=== PATIENT | male | born 1935 | race Caucasian/White ===

== ENCOUNTER → 2019-08-23 | Outpatient (CLI) | payer MEDICARE, BC ==
--- NOTE | 2019-08-24 09:34 | RADIOLOGY REPORT (SQ) ---
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 TECHNIQUE: Multiplanar imaging includes noncontrasted T1, T2, FLAIR, Diffusion with ADC map and post gadolinium contrast T1 sequences. Images stored on PACS. CONTRAST TYPE AND DOSE: 15 mL Prohance. RENAL FUNCTION: Not indicated. ACR Type II contrast agent associated with few, if any, unconfounded cases of NSF LIMITATIONS: None. FINDINGS: ANATOMY: No anomalies. Normal vascular flow voids. Pituitary fossa normal. CSF SPACES: Atrophy-induced prominence of CSF spaces and ventricles. CEREBRUM: High-signal intensity lesions scattered throughout the white matter on FLAIR imaging with d istribution suggesting chronic micro-vascular ischemic change. No evidence of hemorrhage, mass, extra axial fluid collection or acute ischemic change. No enhancing lesions. POSTERIOR FOSSA: No signal alteration. No hemorrhage. No edema, masses, or mass effect. Internal harvey tory canals, cerebello-pontine angles, mastoids normal. No enhancing lesions. ORBITS: No masses. Globes normal. PARANASAL SINUSES: No fluid levels. Mucosa normal. DIFFUSION: Normal. No evidence of recent infarct. OTHER: No other significant finding. IMPRESSION: Chronic ischemic changes. Normal IAC's. EVIDENCE OF ACUTE STROKE: NO. TECHNICAL DOCUMENTATION: JOB ID: [id number] 2010 [employer]- All Rights Reserved Reading location - IP/workstation name: [email or web address]
== END ==
LOC: RAD 17:43
PROVIDERS: ATTEND Otolaryngology
DX: H90.3 Sensorineural hearing loss, bilateral (principal)
CPT/HCPCS: 82565; 70553; A9576

== ENCOUNTER → 2019-09-01 | Outpatient (CLI) | payer MEDICARE, BC ==
--- NOTE | 2019-09-01 11:38 | RADIOLOGY REPORT (SQ) ---
EXAM DESCRIPTION: CHEST PA/LATERAL IMAGES COMPLETED DATE/TIME: 09/01/2019 11:27 am REASON FOR STUDY: PNEUMOTHORAX, UNSPECIFIED COMPARISON: None. EXAM PARAMETERS: NUMBER OF VIEWS: two views TECHNIQUE: Digital Frontal and Lateral radiographic views of the chest acquired. RADIATION DOSE: NA LIMITATIONS: none FINDINGS: LUNGS AND PLEURA: No opacities, masses or pneumothorax. No pleural effusion. MEDIASTINUM AND HILAR STRUCTURES: No masses or contour abnormalities. HEART AND VASCULAR STRUCTURES: Heart normal size. No evidence for failure. BONES: No acute findings. HARDWARE: None in the chest. OTHER: No other significant finding. IMPRESSION: NO SIGNIFICANT RADIOGRAPHIC FINDING IN THE CHEST. TECHNICAL DOCUMENTATION: JOB ID: [id number] 2010 [employer]- All Rights Reserved Reading location - IP/workstation name: [email or web address]
== END ==
LOC: WC 10:57
PROVIDERS: ATTEND Nurse Practitioner Family
DX: J93.9 Pneumothorax, unspecified (principal)
CPT/HCPCS: 71046

== ENCOUNTER 2019-12-04 12:19 | Inpatient (IN) | payer MEDICARE, BC ==
[2019-12-04] MEDS ORDERED: MORPHINE SULFATE 10 MG/ML INJ IM ONE (13:32)
--- NOTE | 2019-12-04 13:33 | ER Document Report ---
ED Medical Screen (RME) - General Chief Complaint: Abdominal Pain Stated Complaint: ABDOMINAL PAIN Time Seen by Provider: 12/04/19 13:31 Primary Care Provider: ANDRES CASTILLO NP, E M ASSEMBLER [Primary Care Provider] - Follow up as needed Mode of Arrival: Ambulatory Information source: Patient Notes: 84-year-old male presented to ED for complaint of pain to his right upper quadra nt abdominal. He states he has had nausea and vomiting has nothing in his stomach started last night. He thinks he is having a bad gallbladder problem. He is alert oriented respirations regular nonlabored speaking in full sentences. He does have past medical history of a fractured wrist prostate cancer and nose cancer. He does get radiation treatment for the prostate and the nose. States he is an 82 a lot of pain and needs something for his pain right now. I have ordered him 2 mg of morphine IM until he can get into her room. I have greeted and performed a rapid initial assessment of this patient. A comprehensive ED assessment and evaluation of the patient, analysis of test results and completion of medical decision making process will be conducted by an additional ED providers. TRAVEL OUTSIDE OF THE [place] IN LAST 30 DAYS: No Physical Exam - Vital signs Vitals: Temp Pulse Resp BP Pulse Ox 97.9 F 57 L 18 180/74 H 99 12/04/19 12:12/04/19 12:12/04/19 12:12/04/19 12:12/04/19 12:27 Course - Vital Signs Vital signs: Temp Pulse Resp BP Pulse Ox 97.9 F 57 L 18 180/74 H 99 12/04/19 12:12/04/19 12:12/04/19 12:12/04/19 12:12/04/19 12:27 Doctor's Discharge - Discharge Referrals: ANDRES CASTILLO NP, E M ASSEMBLER [Primary Care Provider] - Follow up as needed
[2019-12-04] MEDS ORDERED: ONDANSETRON 4 MG TAB.RAPDIS PO ONE (13:38)
[2019-12-04] MEDS ORDERED: NORMAL SALINE 1000 ML 1,000 ML IV ONE (13:38)
[2019-12-04 14:10] LABS: ABSOLUTE LYMPHOCYTES (AUTO) 0.6 10^3/uL (0.5-4.7); ABSOLUTE MONOCYTES (AUTO) 1.1 10^3/uL (0.1-1.4); ABSOLUTE NEUT (AUTO) 9.6 10^3/uL (1.7-8.2); BASOPHILS % (AUTO) 0.2 % (0-2); HEMATOCRIT 44.8 % (37.9-51.0); LYMPHOCYTES % (AUTO) 5.4 % (13-45); MEAN CORPUSCULAR HEMOGLOBIN 30.7 pg (27.0-33.4); MEAN CORPUSCULAR HGB CONC 33.6 g/dL (32.0-36.0); MEAN CORPUSCULAR VOLUME 91 fl (80-97); MONOCYTES % (AUTO) 9.8 % (3-13); PLATELET COUNT 173 10^3/uL (150-450); RED CELL DISTRIBUTION WIDTH 13.6 % (11.5-14.0); SEGMENTED NEUTROPHILS % (AUTO) 84.6 % (42-78); TOTAL CELLS COUNTED % (AUTO) 100 %; WHITE BLOOD COUNT 11.4 10^3/uL (4.0-10.5)
[2019-12-04 14:26] LABS: ALBUMIN 4.7 g/dL (3.5-5.0); ALKALINE PHOSPHATASE 98 U/L (38-126); ANION GAP 13 (5-19); ASPARTATE AMINO TRANSFERASE 30 U/L (17-59); BILIRUBIN,DIRECT 0.3 mg/dL (0.0-0.4); BLOOD UREA NITROGEN 14 mg/dL (7-20); CALCIUM 9.4 mg/dL (8.4-10.2); CARBON DIOXIDE 22 mmol/L (22-30); CHLORIDE 101 mmol/L (98-107); GLUCOSE 128 mg/dL (75-110); POTASSIUM 4.4 mmol/L (3.6-5.0); TOTAL PROTEIN 7.3 g/dL (6.3-8.2)
--- NOTE | 2019-12-04 15:59 | RADIOLOGY REPORT (SQ) ---
EXAM DESCRIPTION: U/S ABDOMEN LIMITED W/O DOP IMAGES COMPLETED DATE/TIME: 12/04/2019 3:34 pm REASON FOR STUDY: Right upper quadrant abdominal pain with NV COMPARISON: None. TECHNIQUE: Dynamic and static grayscale images acquired of the abdomen and recorded on PACS. Additio nal selected color Doppler and spectral images recorded. LIMITATIONS: Limited visualization due to bowel gas. FINDINGS: PANCREAS: Partially visualized. LIVER: Enlarged measuring 18 cm. No focal lesions. No intrahepatic ductal dilation. LIVER VASCULATURE: Normal directional flow of the main portal vein and hepatic veins. GALLBLADDER: Shadowing echogenic dependent material compatible with cholelithiasis. Additional gallb ladder sludge noted. There is mild distention of the gallbladder measuring 4.2 cm transversely. Wal l is thickened measuring 4 mm. No pericholecystic fluid. ULTRASOUND-DETECTED LEACH'S SIGN: Negative. INTRAHEPATIC DUCTS AND COMMON DUCT: CBD and intrahepatic ducts normal caliber. No filling defects. INFERIOR VENA CAVA: Normal flow. AORTA: Partially visualized. No aneurysm. RIGHT KIDNEY: Normal size measuring 12.2 cm. Complex cyst with internal debris within the interpola r region measuring 4.0 x 3.3 x 3.2 cm. No significant vascularity. Otherwise normal echogenicity. No hydronephrosis. No calcifications. PERITONEAL AND RIGHT PLEURAL SPACE: No ascites or effusions. OTHER: Questionable right adrenal nodule measuring approximately 4.0 x 2.6 x 5.6 cm. IMPRESSION: 1. Cholelithiasis and sludge with gallbladder wall thickening and mildly distended gall bladder. Reported negative sonographic Leach's sign. Findings suggestive of but nondiagnostic for acute cholecystitis. Recommend correlation with patient symptoms and white count. 2. Complex cystic lesion within the right kidney measuring up to 4.0 cm. Dedicated renal protocol C T or MRI should be considered for more definitive characterization. 3. Questionable right adrenal mass measuring 4.0 x 2.6 x 5.6 cm. Again dedicated abdominal CT or MR should be considered for more definitive characterization. TECHNICAL DOCUMENTATION: JOB ID: [id number] 2010 [employer]- All Rights Reserved Reading location - IP/workstation name: [email or web address]
[2019-12-04] MEDS ORDERED: PIPERACILLIN/TAZOBACTAM 3.375 GM VIAL IV ONE (20:22)
--- NOTE | 2019-12-04 20:24 | ER Document Report ---
ED GI/ - General Chief Complaint: Abdominal Pain Stated Complaint: ABDOMINAL PAIN Time Seen by Provider: 12/04/19 13:31 Mode of Arrival: Ambulatory Notes: Patient is an 84-year-old male that comes emergency department for chief complaint of mid to upper abdominal pain especially on the right side. He states that this started last night, he has vomited 5 times, he has not eaten anything all day. He denies previous similar symptoms. He denies flank pain, chest pain specifically, shortness of breath, fever/chills, abnormal bowel movements. He denies any abdominal surgeries. He does report that he has a known abdominal hernia but this area is not tender per patient. Past medical history of prostate cancer and skin cancer treated with radiation, in remission. He also is a history of BPH, anxiety. He denies any other medical history and specifically denies any cardiovascular history. He does not smoke or drink alcohol. TRAVEL OUTSIDE OF THE [place] IN LAST 30 DAYS: No - Related Data Allergies/Adverse Reactions: No Known Allergies Allergy (Verified 12/04/19 20:46) Past Medical History - General Information source: Patient - Social History Smoking Status: Never Smoker Frequency of alcohol use: None Drug Abuse: None Lives with: Family Family History: Reviewed & Not Pertinent Malignancy Medical History: Reports Hx Prostate Cancer, Reports Hx Skin Cancer Psychiatric Medical History: Reports: Hx Anxiety - Immunizations Hx Diphtheria, Pertussis, Tetanus Vaccination: Yes Review of Systems - Review of Systems Constitutional: No symptoms reported EENT: No symptoms reported Cardiovascular: No symptoms reported Respiratory: No symptoms reported Gastrointestinal: See HPI Genitourinary: No symptoms reported Male Genitourinary: No symptoms reported Musculoskeletal: No symptoms reported Skin: No symptoms reported Hematologic/Lymphatic: No symptoms reported Neurological/Psychological: No symptoms reported Physical Exam - Vital signs Vitals: Temp Pulse Resp BP Pulse Ox 97.9 F 57 L 18 180/74 H 99 12/04/19 12:27 12/04/19 12:27 12/04/19 12:27 12/04/19 12:27 12/04/19 12:27 - Notes Notes: GENERAL: Alert, interacts well. No acute distress. HEAD: Normocephalic, atraumatic. EYES: Pupils equal, round, and reactive to light. Extraocular movements intact. ENT: Oral mucosa moist, tongue midline. Oropharynx unremarkable. Airway patent. NECK: Full range of motion. Supple. Trachea midline. No lymphadenopathy. LUNGS: Clear to auscultation bilaterally, no wheezes, rales, or rhonchi. No resp iratory distress. Non-tender chest wall. HEART: Regular rate and rhythm, 1/6 systolic murmur heard throughout ABDOMEN: There is some tenderness in the right upper quadrant and epigastric area but no severe tenderness or guarding. There appears to be a small umbilical hernia but this is nontender and soft. Bowel sounds present. No distention, no scars, unremarkable otherwise. EXTREMITIES: Moves all 4 extremities spontaneously. No edema, normal radial and dorsalis pedis pulses bilaterally. No cyanosis. BACK: no cervical, thoracic, lumbar midline tenderness. No saddle anesthesia, normal distal neurovascular exam. Moves all extremities in full range of motion. NEUROLOGICAL: Alert and oriented x3. Normal speech. Cranial nerves II through XII grossly intact. Strength 5/5 in all extremities. PSYCH: Normal affect, normal mood. SKIN: Warm, dry, normal turgor. No rashes or lesions noted. Course - Re-evaluation Re-evalutation: Patient does have right upper quadrant pain on exam but there is no guarding. He does not appear to be in distress. He is hypertensive but his vital signs are otherwise unremarkable. No fever. CBC shows mild leukocytosis at 11,000 with elevation of neutrophils but no bandemia. Chemistry including LFTs, bilirubin, and lipase are unremarkable. Urinalysis unremarkable. Troponin negative, EKG unremarkable, chest x-ray unremarkable. Ultrasound showing gallbladder wall thickening and distention of the gallbladder, suggestive of cholecystitis but recommendation is correlation. Based on patient's symptoms of pain, vomiting, focal pain, and concerning ultrasound I discussed with patient, will discuss with general surgery. Dr. eHrring evaluated the patient, he has accepted patient to his service, patient admitted to the surgical floor. - Vital Signs Vital signs: Temp Pulse Resp BP Pulse Ox 98.4 F 61 17 155/66 H 96 12/05/19 01:09 12/05/19 01:09 12/05/19 01:09 12/05/19 01:09 12/05/19 01:09 - Laboratory Result Diagrams: 12/04/19 13:51 12/04/19 13:51 Laboratory results interpreted by me: 12/04/19 12/04/19 12/04/19 13:51 13:51 20:00 WBC 11.4 H Lymph % (Auto) 5.4 L Absolute Neuts (auto) 9.6 H Seg Neutrophils % 84.6 H Sodium 136.2 L Glucose 128 H Urine Protein 100 H Urine Urobilinogen 2.0 H Discharge - Discharge Clinical Impression: RUQ abdominal pain, Vomiting, Cholecystitis Condition: Stable Disposition: ADMITTED OBSERVATION Admitting Provider: Surgicalist Unit Admitted: Surgical Floor
[2019-12-04 20:30] LABS: APPEARANCE,URINE CLEAR; BILIRUBIN,URINE NEGATIVE (NEGATIVE); COLOR,URINE YELLOW; GLUCOSE, URINE NEGATIVE (NEGATIVE); KETONES,URINE NEGATIVE (NEGATIVE); LEUKOCYTE ESTERASE,URINE NEGATIVE (NEGATIVE); NITRITE,URINE NEGATIVE (NEGATIVE); PROTEIN,URINE 100 mg/dL (NEGATIVE); URINE SPECIFIC GRAVITY 1.018
[2019-12-04] MEDS ORDERED: MORPHINE SULFATE 10 MG/ML INJ IV ONE (20:42)
[2019-12-04] MEDS ORDERED: ONDANSETRON HCL INJ/PF 4 MG/2 ML SDV IV ONE (20:42)
--- NOTE | 2019-12-04 21:02 | RADIOLOGY REPORT (SQ) ---
CLINICAL INDICATION: upper abd/lower chest pain. TECHNIQUE: A single portable AP view was obtained of the chest at 2040 hours. COMPARISON: None. FINDINGS: The cardiomediastinal silhouette is prominent but stable. The lungs are grossly clear. No evidence of effusion or pneumothorax. Chronic parenchymal lung change. Trivial platelike atelectasis/scar, similar to prior IMPRESSION: No evidence of active intrathoracic disease. Mild chronic change
[2019-12-04] MEDS ORDERED: NORMAL SALINE 1000 ML 1,000 ML IV PRN ×2 (21:22→21:40)
[2019-12-04] MEDS ORDERED: ONDANSETRON HCL INJ/PF 4 MG/2 ML SDV IV PRN (21:43)
--- NOTE | 2019-12-04 21:51 | PDOC H&P ---
History of Present Illness Admission Date/PCP: CAROL STARKS MD Patient complains of: Abdominal pain History of Present Illness: IRVIN LEE is a 84 year old male Patient presents emergency department via ground rescue with approximately 18- hour history of abdominal pain, multiple episodes of nausea and vomiting and anorexia. Last bowel movement yesterday, normal. Patient denies history of trauma, previous episodes of abdominal pain GI symptoms etc. There is a strong family history of gallbladder disease. Patient has been in the emergency department for 6 and half hours. He had a gallbladder ultrasound which showed gallstones, borderline thickened gallbladder. Surgery was consulted, patient was advised admission. Past Medical History Past Medical History: Hard of hearing; superficial skin cancers Past Surgical History Past Surgical History: Status post inguinal hernia repair Social History Information Source: Patient Smoking Status: Never Smoker Electronic Cigarette use?: No Frequency of Alcohol Use: None Hx Recreational Drug Use: No Hx Prescription Drug Abuse: No Family History Family History: None Parental Family History Reviewed: No Children Family History Reviewed: No Sibling(s) Family History Reviewed.: No Medication/Allergy Allergies/Adverse Reactions: No Known Allergies Allergy (Verified 12/04/19 20:46) Review of Systems Constitutional: PRESENT: as per HPI Eyes: ABSENT: visual disturbances Ears: ABSENT: hearing changes Cardiovascular: ABSENT: chest pain, dyspnea on exertion, edema, orthropnea, palpitations Respiratory: ABSENT: cough, hemoptysis Gastrointestinal: PRESENT: as per HPI Genitourinary: ABSENT: dysuria, hematuria Musculoskeletal: ABSENT: joint swelling Integumentary: ABSENT: rash, wounds Neurological: ABSENT: abnormal gait, abnormal speech, confusion, dizziness, focal weakness, syncope Endocrine: ABSENT: cold intolerance, heat intolerance, polydipsia, polyuria Hematologic/Lymphatic: ABSENT: easy bleeding, easy bruising Physical Exam Vital Signs: Temp Pulse Resp BP Pulse Ox 97.9 F 57 L 20 174/76 H 94 12/04/19 12:27 12/04/19 12:27 12/04/19 21:01 12/04/19 21:01 12/04/19 21:01 Intake & Output 12/03/19 12/04/19 12/05/19 06:59 06:59 06:59 Weight 83.9 kg General appearance: PRESENT: no acute distress Head exam: PRESENT: normocephalic Eye exam: PRESENT: EOMI Mouth exam: PRESENT: dry mucosa Neck exam: PRESENT: full ROM Respiratory exam: PRESENT: clear to auscultation lolita Cardiovascular exam: PRESENT: RRR Pulses: PRESENT: normal carotid pulses, normal radial pulses, normal femoral pulses, normal dorsalis pedis pul GI/Abdominal exam: PRESENT: soft, other - Tender right upper quadrant with guarding to deep palpation. Small umbilical hernia, reducible Rectal exam: PRESENT: deferred Extremities exam: PRESENT: full ROM Musculoskeletal exam: PRESENT: full ROM Neurological exam: PRESENT: awake, oriented to person, oriented to place, oriented to time, oriented to situation, reflexes normal Psychiatric exam: PRESENT: appropriate affect Skin exam: PRESENT: dry Results Laboratory Results: 12/04/19 13:51 12/04/19 13:51 12/04/19 12/04/19 12/04/19 13:51 13:51 20:00 WBC 11.4 H RBC 4.90 Hgb 15.0 Hct 44.8 MCV 91 MCH 30.7 MCHC 33.6 RDW 13.6 Plt Count 173 Seg Neutrophils % 84.6 H Sodium 136.2 L Potassium 4.4 Chloride 101 Carbon Dioxide 22 Anion Gap 13 BUN 14 Creatinine 0.85 Est GFR ( Amer) > 60 Glucose 128 H Calcium 9.4 Total Bilirubin 1.0 AST 30 Alkaline Phosphatase 98 Total Protein 7.3 Albumin 4.7 Lipase 59.2 Urine Color YELLOW Urine Appearance CLEAR Urine pH 7.0 Ur Specific Mcgregor 1.018 Urine Protein 100 H Urine Glucose (UA) NEGATIVE Urine Ketones NEGATIVE Urine Blood NEGATIVE Urine Nitrite NEGATIVE Ur Leukocyte Esterase NEGATIVE Urine WBC (Auto) 4 Urine RBC (Auto) 4 12/04/19 13:51 Troponin I 0.013 Impressions: Abdomen Ultrasound 12/04/19 13:34 IMPRESSION: 1. Cholelithiasis and sludge with gallbladder wall thickening and mildly distended gallbladder. Reported negative sonographic Leach's sign. Findings suggestive of but nondiagnostic for acute cholecystitis. Recommend correlation with patient symptoms and white count. 2. Complex cystic lesion within the right kidney measuring up to 4.0 cm. Dedicated renal protocol CT or MRI should be considered for more definitive characterization. 3. Questionable right adrenal mass measuring 4.0 x 2.6 x 5.6 cm. Again dedicated abdominal CT or MR should be considered for more definitive characterization. Chest X-Ray 12/04/19 20:22 IMPRESSION: No evidence of active intrathoracic disease. Mild chronic change Assessment & Plan - Diagnosis (1) Cholecystitis, acute with cholelithiasis Is this a current diagnosis for this admission?: Yes Plan: See below under umbilical hernia (2) Umbilical hernia Is this a current diagnosis for this admission?: Yes Plan: Impression: Acute cholecystitis with cholelithiasis in 84-year-old highly functional white male with no documented chronic medical problems; incidental right renal cyst, and possible right adrenal mass; incidental, reducible umbilical hernia Recommendations: 1. Will admit, keep n.p.o. IV fluids intravenous antibiotics 2. We will check rapid COVID test. 3. Plan for laparoscopic, possible open cholecystectomy, closure of umbilical hernia, tomorrow, December 04, Dr. Maynard surgicalist 4. We will obtain dedicated CT scan of the abdomen and pelvis with IV and oral contrast tomorrow morning to further define the pathoanatomy involving the right kidney and adrenal gland. (3) Hard of hearing Is this a current diagnosis for this admission?: Yes (4) Renal cyst, right Is this a current diagnosis for this admission?: Yes (5) Right adrenal mass Is this a current diagnosis for this admission?: Yes - Time Time Spent: 30 to 50 Minutes Critical Time spent with patient: Less than 15 minutes Medications reviewed and adjusted accordingly: Yes Anticipated Discharge Disposition: Home, Self Care Anticipated Discharge Timeframe: within 48 hours
[2019-12-04] MEDS ORDERED: CEFAZOLIN 1 GM/D5W RTU 1 GM/50 ML RTUPB IV ONE (22:30)
[2019-12-05] MEDS ORDERED: CEFAZOLIN 1 GM/D5W RTU 1 GM/50 ML RTUPB IV ONE (04:25)
[2019-12-05] MEDS: CEFAZOLIN 1 GM/D5W RTU 1 GM/50 ML RTUPB IV SCH ×2 (05:52→15:12)
--- NOTE | 2019-12-05 08:10 | PDOC PROGRESS REPORT ---
Subjective Progress Note for:: 12/05/19 Subjective:: Comfortable Reason For Visit: ACUTE CHOLECYSTITIS WITH CHOLELITHIASIS Physical Exam Vital Signs: Temp Pulse Resp BP Pulse Ox 98.4 F 61 17 155/66 H 96 12/05/19 01:09 12/05/19 01:09 12/05/19 01:09 12/05/19 01:09 12/05/19 01:09 Intake & Output 12/04/19 12/05/19 12/06/19 06:59 06:59 06:59 Intake Total 1100 Output Total 0 Balance 1100 Weight 83 kg General appearance: PRESENT: no acute distress Respiratory exam: PRESENT: clear to auscultation lolita Cardiovascular exam: PRESENT: RRR GI/Abdominal exam: PRESENT: soft, tenderness - Minimal right upper quadrant Results Laboratory Results: 12/04/19 13:51 12/04/19 13:51 12/04/19 12/04/19 12/04/19 13:51 13:51 20:00 WBC 11.4 H RBC 4.90 Hgb 15.0 Hct 44.8 MCV 91 MCH 30.7 MCHC 33.6 RDW 13.6 Plt Count 173 Seg Neutrophils % 84.6 H Sodium 136.2 L Potassium 4.4 Chloride 101 Carbon Dioxide 22 Anion Gap 13 BUN 14 Creatinine 0.85 Est GFR ( Amer) > 60 Glucose 128 H Calcium 9.4 Total Bilirubin 1.0 AST 30 Alkaline Phosphatase 98 Total Protein 7.3 Albumin 4.7 Lipase 59.2 Urine Color YELLOW Urine Appearance CLEAR Urine pH 7.0 Ur Specific Ramsey 1.018 Urine Protein 100 H Urine Glucose (UA) NEGATIVE Urine Ketones NEGATIVE Urine Blood NEGATIVE Urine Nitrite NEGATIVE Ur Leukocyte Esterase NEGATIVE Urine WBC (Auto) 4 Urine RBC (Auto) 4 12/04/19 13:51 Troponin I 0.013 Impressions: Abdomen Ultrasound 12/04/19 13:34 IMPRESSION: 1. Cholelithiasis and sludge with gallbladder wall thickening and mildly distended gallbladder. Reported negative sonographic Leach's sign. Findings suggestive of but nondiagnostic for acute cholecystitis. Recommend correlation with patient symptoms and white count. 2. Complex cystic lesion within the right kidney measuring up to 4.0 cm. De dicated renal protocol CT or MRI should be considered for more definitive characterization. 3. Questionable right adrenal mass measuring 4.0 x 2.6 x 5.6 cm. Again dedicated abdominal CT or MR should be considered for more definitive characterization. Chest X-Ray 12/04/19 20:22 IMPRESSION: No evidence of active intrathoracic disease. Mild chronic change Assessment & Plan - Diagnosis (1) Renal cyst, right Is this a current diagnosis for this admission?: Yes (2) Cholecystitis, acute with cholelithiasis Qualifiers: Biliary obstruction: without biliary obstruction Qualified Code(s): K80.00 - Calculus of gallbladder with acute cholecystitis without obstruction Is this a current diagnosis for this admission?: Yes (3) Right adrenal mass Is this a current diagnosis for this admission?: Yes - Time Anticipated Discharge Disposition: Home, Self Care Anticipated Discharge Timeframe: within 48 hours - Plan Summary Plan Summary: Assessment: Acute cholecystitis with cholelithiasis without better obstruction Slight leukocytosis 11,000 Complete metabolic profile within normal limits Ultrasound gallbladder shows a thickened gallbladder wall with stones Possible complex right kidney mass as well as a large adrenal mass of 5.6 cm in maximal diameter Plan: CT scan abdomen pelvis with IV contrast today to better define the complex right kidney mass and the large adrenal mass Plan laparoscopic cystectomy, possible open, possible cholangiogram today Procedure, risks, benefits, complications, including bleeding, bowel injury, in jury to bile ducts which may require transfer to tertiary center and an open procedure, and have been discussed with the patient at length, he understands all the above, his questions were answered, he desires to proceed Preop EKG Continue n.p.o.
[2019-12-05] MEDS ORDERED: NEOSTIGMINE METHYLSULFATE 10 MG/10 ML VIAL ONE (09:31)
[2019-12-05] MEDS ORDERED: GLYCOPYRROLATE 1 MG/5 ML VIAL ONE (09:31)
[2019-12-05] MEDS ORDERED: METOCLOPRAMIDE HCL INJ/PF 10 MG/2 ML SDV ONE (09:31)
[2019-12-05] MEDS ORDERED: LIDOCAINE 2% INJ-PF (20 MG/ML) 2 ML AMPUL ONE (09:31)
[2019-12-05] MEDS ORDERED: ONDANSETRON HCL INJ/PF 4 MG/2 ML SDV ONE ×2 (09:31→12:51)
[2019-12-05] MEDS ORDERED: SUCCINYLCHOLINE CHLORIDE INJ 200 MG/10 ML VIAL ONE (09:31)
[2019-12-05] MEDS ORDERED: ROCURONIUM BROMIDE INJ 50 MG/5 ML VIAL IV ONE (09:31)
--- NOTE | 2019-12-05 09:48 | RADIOLOGY REPORT (SQ) ---
EXAM DESCRIPTION: CT ABD/PELVIS WITH IV ORAL IMAGES COMPLETED DATE/TIME: 12/05/2019 8:46 am REASON FOR STUDY: Right adrenal and renal masses seen on ultrasound COMPARISON: Ultrasound dated 12/04/2019. TECHNIQUE: CT scan of the abdomen and pelvis performed with intravenous and oral contrast using ava shannan scanning technique with dynamic intravenous contrast injection. Images reviewed with lung, soft t issue, and bone windows. Reconstructed coronal and sagittal MPR images reviewed. Delayed images for e valuation of the urinary system also acquired. All images stored on PACS. All CT scanners at this facility use dose modulation, iterative reconstruction, and/or weight based d osing when appropriate to reduce radiation dose to as low as reasonably achievable (ALARA). [facility]: Dose Right [facility]: CareDose [facility]: Dose Right [facility]: Teradose 4D [facility]: Sequence Design CONTRAST TYPE AND DOSE: contrast/concentration: Isovue 350.00 mmol/ml; Total Contrast Delivered: 94. 0 ml; Total Saline Delivered: 40.0 ml RENAL FUNCTION: BUN 14 creatinine 0.85. RADIATION DOSE: CT Rad equipment meets quality standard of care and radiation dose reduction techniq ues were employed. CTDIvol: 8.8 - 8.9 mGy. DLP: 1020 mGy-cm.. LIMITATIONS: None. FINDINGS: LOWER CHEST: Irregular airspace disease with air bronchograms in the right lower lobe. LIVER: Normal size. No masses. No dilated ducts. SPLEEN: Normal size. No focal lesions. PANCREAS: No masses. No significant calcifications. No adjacent inflammation or peripancreatic fluid collections. Pancreatic duct not dilated. GALLBLADDER: No identified stones by CT criteria. Somewhat distended. Blurring and stranding in the pericholecystic tissues. ADRENAL GLANDS: No significant masses or asymmetry. RIGHT KIDNEY AND URETER: 3.7 cm cortical cyst. Average Hounsfield units measure 10-13 on postcontras t and delayed imaging. No solid masses. No significant calcification. No hydronephrosis or hydrouret er. LEFT KIDNEY AND URETER: No solid masses. No significant calcification. No hydronephrosis or hydrouret er. AORTA AND VESSELS: No aneurysm. No dissection. Renal arteries, SMA, celiac without stenosis. RETROPERITONEUM: No retroperitoneal adenopathy, hemorrhage or masses. BOWEL AND PERITONEAL CAVITY: No obstruction. No visualized masses. No free fluid. No inflammatory ch anges or thickening of bowel wall. APPENDIX: Normal. PELVIS: No significant masses. Metallic markers in the prostate. Left inguinal hernia containing fa t. Adjacent surgical clips. Normal bladder. No free fluid. ABDOMINAL WALL: No masses. Small umbilical hernia containing fat. BONES: No significant or acute findings. OTHER: No other significant finding. IMPRESSION: 1. 3.7 CM CORTICAL CYST IN THE RIGHT KIDNEY. HOUNSFIELD UNITS CONSISTENT WITH SIMPLE FLUID. 2. DISTENDED GALLBLADDER WITH INFLAMMATORY CHANGES IN THE PERICHOLECYSTIC TISSUES. CONSIDER CHOLECYS TITIS. 3. AIRSPACE DISEASE WITH AIR BRONCHOGRAMS IN THE RIGHT LOWER LOBE CONCERNING FOR PNEUMONIA. 4. LEFT INGUINAL HERNIA CONTAINING FAT. SMALL UMBILICAL HERNIA CONTAINING FAT. 5. NO OTHER SIGNIFICANT OR ACUTE FINDINGS IN THE ABDOMEN OR PELVIS. NO ADRENAL MASS. THE ECHOGENIC AREA ON PREVIOUS ULTRASOUND IS PROBABLY RELATED TO PERINEPHRIC FAT. TECHNICAL DOCUMENTATION: JOB ID: [id number] Quality ID # [id number]: Final reports with documentation of one or more dose reduction techniques (e.g., Au tomated exposure control, adjustment of the mA and/or kV according to patient size, use of iterative reconstruction technique) 2010 [employer]- All Rights Reserved Reading location - IP/workstation name: [email or web address]
[2019-12-05] MEDS ORDERED: FENTANYL CITRATE INJ/PF 100 MCG/2 ML AMPUL ONE ×2 (12:51→16:10)
[2019-12-05] MEDS ORDERED: PROPOFOL INJ 200 MG/20 ML VIAL IV ONE (12:51)
[2019-12-05] MEDS ORDERED: DEXAMETHASONE SOD PHOSPHATE INJ 4 MG/1 ML VIAL ONE (12:51)
[2019-12-05] MEDS ORDERED: BUPIVACAINE HCL 0.5%-EPI 1:200000 INJ/PF 30 ML VIAL ONE (12:54)
[2019-12-05] MEDS ORDERED: ONDANSETRON HCL INJ/PF 4 MG/2 ML SDV IV PRN ×2 (13:57→15:59)
[2019-12-05] MEDS ORDERED: DIPHENHYDRAMINE HCL 50 MG/ML VIAL IV PRN (13:57)
[2019-12-05] MEDS ORDERED: PROMETHAZINE HCL INJ 25 MG/1 ML VIAL IV PRN (13:57)
[2019-12-05] MEDS ORDERED: FENTANYL CITRATE INJ/PF 100 MCG/2 ML AMPUL IV PRN ×3 (13:57)
--- NOTE | 2019-12-05 15:57 | Operative Report ---
Operative Report DATE OF SURGERY: 12/05/19 PREOPERATIVE DIAGNOSIS: Acute cholecystitis with cholelithiasis POSTOPERATIVE DIAGNOSIS: Same OPERATION: Laparoscopic cholecystectomy with extensive lysis of adhesions SURGEON: SHADI GR ANESTHESIA: GA - 25 mL of 0.5% Marcaine with epinephrine TISSUE REMOVED OR ALTERED: Gallbladder COMPLICATIONS: None ESTIMATED BLOOD LOSS: 80 mL INTRAOPERATIVE FINDINGS: Thickened gallbladder wall with severe pericholecystic inflammation and multiple adhesions between greater omentum and gallbladder PROCEDURE: The procedure was done in the operating room. The patient was placed in a supine position, general anesthesia induced by endotracheal intubation, the abdomen was prepped and draped in usual fashion. An incision was made just above the umbilicus with a #15 blade, the skin was tented with towel clips and a 5 mm port with Optiview adapter and scope was inserted through the abdominal wall into the peritoneal cavity. CO2 pneumoperitoneum was obtained, under direct visualization a 12 mm port was inserted in the epigastrium and two 5 mm ports were placed in the right lateral quadrant of the abdomen under direct visualization. The patient was placed in steep reverse Trendelenburg position, the right side was elevated, the gallbladder fundus was grasped and the gallbladder was elevated and retroflexed; the cystic neck was identified, grasped, and pulled anterior to the patient's right with exposure of the triangle of Calot. Large amount of patient's were identified between the body and neck of the gallbladder and the greater omentum as well as the stomach. It took about 30 minutes of dissection to finally identify the neck and body of the gallbladder, all adhesions were divided with hook cautery bluntly. Moderate amount of blood loss was noted from the dissection of the greater omentum. The critical view of safety was obtained by dividing the peritoneal attachments of the gallbladder body both medially and laterally with a hook cautery. When this was accomplished, the hook cautery dissection was continued toward the cystic neck. An opening was then obtained posterior to the cystic duct which was enlarged with a peanut dissector and with a right angle dissector. Once the critical view of safety was obtained, the cystic duct was carefully dissected with a hook cautery and a space was developed between the cystic duct and cystic artery with a right angle dissector. Both were then double clipped proximally and distally and divided with scissors. The gallbladder was dissected from the liver bed using hook cautery at high settings, and extracted from the peritoneal cavity with an Endobag through the epigastric port. The pneumoperitoneum was then re-established, the gallbladder fossa was examined and found to be free from bile staining. A moderate amount of bleeding was noted from the liver surface, this was controlled with hook cautery high setting. The right upper quadrant was then irrigated with normal saline until clear. 10 mL of FloSeal were then applied to the gallbladder fossa followed by a large piece of Surgicel. Bleeding was noted following cauterization of the liver bed as well as application of FloSeal and Surgicel. A 19 mm Italian round Yohan drain was inserted through the epigastric port and extracted from the left upper quadrant abdominal port; it was placed in the gallbladder fossa under direct visualization and secured to the skin with a 2-0 nylon suture. Final inspection the gallbladder fossa coronary FloSeal and Surgicel did not reveal any active bleeding, the drain was seen to be satisfactory infrahepatic position within the gallbladder fossa. The epigastric fascial defect was closed with a [id number] 0 Vicryl suture, placed with a fascia closure device under direct visualization, and left untied. All instruments were removed, the CO2 pneumoperitoneum was released, and all the ports were removed. The epigastric fascial defect was closed with the previously placed [id number] 0 Vicryl suture, all skin incisions were closed with a 4-0 PDS running subcuticular suture, and Dermabond was applied. The patient tolerated the procedure well, was extubated, and transferred to the recovery room in satisfactory conditions.
[2019-12-05] MEDS ORDERED: MORPHINE SULFATE 10 MG/ML INJ IV PRN (15:59)
[2019-12-05] MEDS ORDERED: CEFTRIAXONE 2 GM/D5W RTU 2 GM/50 ML RTUPB IV SCH (18:30)
[2019-12-05] MEDS: FAMOTIDINE 20 MG TABLET PO SCH (22:07)
[2019-12-06] MEDS: ENOXAPARIN SODIUM INJ 30 MG/0.3 ML DISP.SYRIN SUBCUT SCH ×3 (09:22→21:36)
[2019-12-06] MEDS: FAMOTIDINE 20 MG TABLET PO SCH ×2 (09:25→21:36)
[2019-12-06] MEDS ORDERED: HYDROCODONE/ACETAMINOPHEN 5-325 MG TABLET PO PRN (09:47)
--- NOTE | 2019-12-06 09:51 | PDOC PROGRESS REPORT ---
Subjective Progress Note for:: 12/06/19 Reason For Visit: ACUTE CHOLECYSTITIS WITH CHOLELITHIASIS Physical Exam Vital Signs: Temp Pulse Resp BP Pulse Ox 97.9 F 67 17 146/67 H 96 12/06/19 09:00 12/06/19 00:00 12/06/19 00:00 12/06/19 00:00 12/06/19 00:00 Intake & Output 12/05/19 12/06/19 12/07/19 06:59 06:59 06:59 Intake Total 2100 5275 Output Total 0 860 Balance 2100 4415 Weight 83 kg 83.1 kg Results Laboratory Results: 12/04/19 13:51 12/04/19 13:51 12/04/19 13:51 Troponin I 0.013 Impressions: Abdomen Ultrasound 12/04/19 13:34 IMPRESSION: 1. Cholelithiasis and sludge with gallbladder wall thickening and mildly distended gallbladder. Reported negative sonographic Leach's sign. Findings suggestive of but nondiagnostic for acute cholecystitis. Recommend correlation with patient symptoms and white count. 2. Complex cystic lesion within the right kidney measuring up to 4.0 cm. Dedicated renal protocol CT or MRI should be considered for more definitive characterization. 3. Questionable right adrenal mass measuring 4.0 x 2.6 x 5.6 cm. Again dedicated abdominal CT or MR should be considered for more definitive c haracterization. Chest X-Ray 12/04/19 20:22 IMPRESSION: No evidence of active intrathoracic disease. Mild chronic change Abdomen/Pelvis CT 12/05/19 08:00 IMPRESSION: 1. 3.7 CM CORTICAL CYST IN THE RIGHT KIDNEY. HOUNSFIELD UNITS CONSISTENT WITH SIMPLE FLUID. 2. DISTENDED GALLBLADDER WITH INFLAMMATORY CHANGES IN THE PERICHOLECYSTIC TISSU ES. CONSIDER CHOLECYSTITIS. 3. AIRSPACE DISEASE WITH AIR BRONCHOGRAMS IN THE RIGHT LOWER LOBE CONCERNING FOR PNEUMONIA. 4. LEFT INGUINAL HERNIA CONTAINING FAT. SMALL UMBILICAL HERNIA CONTAINING FAT. 5. NO OTHER SIGNIFICANT OR ACUTE FINDINGS IN THE ABDOMEN OR PELVIS. NO ADRENAL MASS. THE ECHOGENIC AREA ON PREVIOUS ULTRASOUND IS PROBABLY RELATED TO PERINEPHRIC FAT. Assessment & Plan - Diagnosis (1) Cholecystitis, acute with cholelithiasis Qualifiers: Biliary obstruction: without biliary obstruction Qualified Code(s): K80.00 - Calculus of gallbladder with acute cholecystitis without obstruction Is this a current diagnosis for this admission?: Yes - Time Anticipated Discharge Disposition: Possible rehab versus SNF placement Anticipated Discharge Timeframe: within 48 hours - Plan Summary Plan Summary: 84-year-old male status post laparoscopic cholecystectomy for cholecystitis. The patient is doing well today. He is eating without difficulty. He still complains of abdominal discomfort, especially when moving. His HELENA is productive of sanguinous fluid. I have discussed the patient's living situation with him. He lives completely alone. His nearest relative is in [facility]. I will have social work see him, for a safety evaluation and possible rehab placement. Out of bed. Aggressive pulmonary toilet. DVT prophylaxis.
--- NOTE | 2019-12-06 10:28 | EKG REPORT ---
SEVERITY:- NORMAL ECG - SINUS RHYTHM : Confirmed by: Tiarra Grover MD 06-Dec-2019 10:27:39
[2019-12-07 08:02] VITALS: BP 147/77
--- NOTE | 2019-12-07 09:28 | PDOC PROGRESS REPORT ---
Subjective Progress Note for:: 12/07/19 Subjective:: Patient comfortable, no complaints, he reports constipation Reason For Visit: ACUTE CHOLECYSTITIS WITH CHOLELITHIASIS, Physical Exam Vital Signs: Temp Pulse Resp BP Pulse Ox 98.3 F 65 16 147/77 H 95 12/07/19 08:21 12/07/19 07:20 12/07/19 07:20 12/07/19 07:20 12/07/19 07:20 Intake & Output 12/06/19 12/07/19 12/08/19 06:59 06:59 06:59 Intake Total 5275 1070 Output Total 860 340 Balance 4415 730 Weight 83.1 kg 83.1 kg General appearance: PRESENT: no acute distress Respiratory exam: PRESENT: clear to auscultation lolita Cardiovascular exam: PRESENT: RRR GI/Abdominal exam: PRESENT: normal bowel sounds, soft, other - Right upper quadrant Yohan drain filled with serosanguineous fluid Results Laboratory Results: 12/04/19 13:51 12/04/19 13:51 12/04/19 13:51 Troponin I 0.013 Impressions: Abdomen Ultrasound 12/04/19 13:34 IMPRESSION: 1. Cholelithiasis and sludge with gallbladder wall thickening and mildly distended gallbladder. Reported negative sonographic Leach's sign. Findings suggestive of but nondiagnostic for acute cholecystitis. Recommend correlation with patient symptoms and white count. 2. Complex cystic lesion within the right kidney measuring up to 4.0 cm. Dedicated renal protocol CT or MRI should be considered for more definitive characterization. 3. Questionable right adrenal mass measuring 4.0 x 2.6 x 5.6 cm. Again ded icated abdominal CT or MR should be considered for more definitive characterization. Chest X-Ray 12/04/19 20:22 IMPRESSION: No evidence of active intrathoracic disease. Mild chronic change Abdomen/Pelvis CT 12/05/19 08:00 IMPRESSION: 1. 3.7 CM CORTICAL CYST IN THE RIGHT KIDNEY. HOUNSFIELD UNITS CONSISTENT WITH SIMPLE FLUID. 2. DISTENDED GALLBLADDER WITH INFLAMMATORY CHANGES IN THE PERICHOLECYSTIC TISSUES. CONSIDER CHOLECYSTITIS. 3. AIRSPACE DISEASE WITH AIR BRONCHOGRAMS IN THE RIGHT LOWER LOBE CONCERNING FOR PNEUMONIA. 4. LEFT INGUINAL HERNIA CONTAINING FAT. SMALL UMBILICAL HERNIA CONTAINING FAT. 5. NO OTHER SIGNIFICANT OR ACUTE FINDINGS IN THE ABDOMEN OR PELVIS. NO ADRENAL MASS. THE ECHOGENIC AREA ON PREVIOUS ULTRASOUND IS PROBABLY RELATED TO PERINEPHRIC FAT. Assessment & Plan - Diagnosis (1) Renal cyst, right Is this a current diagnosis for this admission?: Yes (2) Cholecystitis, acute with cholelithiasis Qualifiers: Biliary obstruction: without biliary obstruction Qualified Code(s): K80.00 - Calculus of gallbladder with acute cholecystitis without obstruction Is this a current diagnosis for this admission?: Yes (3) Right adrenal mass Is this a current diagnosis for this admission?: Yes - Time Anticipated Discharge Disposition: Home, Self Care Anticipated Discharge Timeframe: When cleared by hospitalist - Plan Summary Plan Summary: Assessment: Postoperative day #2 following laparoscopic hysterectomy for acute cholecystitis with cholelithiasis Postoperative course unremarkable Vital signs stable, patient afebrile Patient asymptomatic Physical exam unremarkable abdomen soft incision clean dry intact Yohan drain with about 10 mL of serosanguineous fluid Chest x-ray on admission negative CT scan abdomen pelvis done on admission reveals a possible RLL pneumonia Right inguinal hernia containing fat, benign right kidney cyst, umbilical hernia all identified on CAT scan Plan: Hospitalist consultation for possible pneumonia today Soap suds enema today for constipation Afterward, if okay with hospitalist the patient can be discharged to home Follow-up in the office in 1 week for drain removal Routine abdominal drain care Empty drain bulb once a day, record amount, bring record of output to the office Sponge bath only anterior drain is in place Regular diet Resume home medications Follow-up with your primary care physician in 1 week to 2 weeks Tylenol only for pain No need of wound care Remain active All activities as tolerated including lifting, up and down the stairs, driving
[2019-12-07] MEDS: ENOXAPARIN SODIUM INJ 30 MG/0.3 ML DISP.SYRIN SUBCUT SCH (09:29)
[2019-12-07] MEDS: FAMOTIDINE 20 MG TABLET PO SCH (09:30)
[2019-12-07] MEDS ORDERED: ONDANSETRON HCL INJ/PF 4 MG/2 ML SDV IV PRN (10:00)
[2019-12-07] MEDS ORDERED: TAMSULOSIN HCL 0.4 MG CAP.SR.24H PO SCH (10:00)
[2019-12-07] MEDS ORDERED: CLONAZEPAM 1 MG TABLET PO SCH ×2 (10:00→22:00)
[2019-12-07 10:03] LABS: ABSOLUTE BASOPHILS # (AUTO) 0.1 10^3/uL (0.0-0.2); ABSOLUTE EOSINOPHILS # (AUTO) 0.5 10^3/uL (0.0-0.6); BASOPHILS % (AUTO) 1.2 % (0-2); EOSINOPHILS % (AUTO) 6.1 % (0-6); HEMATOCRIT 37.6 % (37.9-51.0); LYMPHOCYTES % (AUTO) 13.6 % (13-45); MEAN CORPUSCULAR HEMOGLOBIN 31.1 pg (27.0-33.4); MEAN CORPUSCULAR HGB CONC 33.9 g/dL (32.0-36.0); MEAN CORPUSCULAR VOLUME 92 fl (80-97); MONOCYTES % (AUTO) 13.7 % (3-13); PLATELET COUNT 163 10^3/uL (150-450); RED BLOOD COUNT 4.11 10^6/uL (4.35-5.55); RED CELL DISTRIBUTION WIDTH 13.5 % (11.5-14.0); SEGMENTED NEUTROPHILS % (AUTO) 65.4 % (42-78); TOTAL CELLS COUNTED % (AUTO) 100 %; WHITE BLOOD COUNT 7.6 10^3/uL (4.0-10.5)
[2019-12-07 10:05] LABS: HEMOGLOBIN 12.8 g/dL (13.5-17.0)
[2019-12-07 10:20] LABS: ANION GAP 11 (5-19); BLOOD UREA NITROGEN 20 mg/dL (7-20); CALCIUM 8.7 mg/dL (8.4-10.2); CARBON DIOXIDE 21 mmol/L (22-30); CHLORIDE 107 mmol/L (98-107); GLUCOSE 159 mg/dL (75-110)
--- NOTE | 2019-12-07 10:24 | CDI QUERY ---
<ADILENE ACE - Last Filed: 12/07/19 10:21> CDI Query CDI Review: Dear Provider, 12/06 progress note states laparoscopic hysterectomy. Please review, thanks. Adilene Ace CDI [phone] <SHADI GR - Last Filed: 12/07/19 10:30> CDI Query Agree with Query: No - procedure was laparoscopic cholecystectomy
--- NOTE | 2019-12-07 10:39 | PDOC CONSULTATION ---
Consultation Consult Date: 12/07/19 Attending physician:: SHADI GR Provider Consulted: CHATO MOLINA Consult reason:: Assess for pneumonia History of Present Illness Admission Date/PCP: 12/06/19 13:39 CAROL STARKS MD Patient complains of: Abdominal pain History of Present Illness: IRVIN LEE is a 84 year old male with no significant past medical history who presented on December 03 with ongoing abdominal pain. Evaluation revealed cholecystitis. On December 04 he underwent laparoscopic cholecystectomy. The patient has done very well. On a CT scan of the abdomen and pelvis the lower portion of the lungs were visualized. There was question of an infiltrate. Chest x-ray did not reveal any focal infiltrate but the CT scan resolution is much higher than the plain film x-ray. The patient had a minimal elevation of white count on admission. He was given several doses of antibiotics pre-and post surgery. The surgery was performed without complication. I have been asked to see the patient to evaluate for possible pneumonia with regard to being able to discharge to home. Past Medical History Cardiac Medical History: Denies: Atrial Fibrillation, Myocardial Infarction, Pulmonary Embolism Pulmonary Medical History: Denies: Asthma, Chronic Obstructive Pulmonary Disease (COPD), Pneumonia EENT Medical History: Reports: None Neurological Medical History: Denies: Ischemic CVA Endocrine Medical History: Denies: Diabetes Mellitus Type 2 Renal/ Medical History: Denies: Chronic Kidney Disease Malignancy Medical History: Reports: Skin Cancer GI Medical History: Denies: Cirrhosis, Gastroesophageal Reflux Disease Skin Medical History: Denies: Eczema, Other Psychiatric Medical History: Denies: Alcohol Dependency, Depression, Tobacco Dependency Traumatic Medical History: Reports: None Hematology: Denies: Anemia, Bleeding Tendencies Infectious Medical History: Reports: None Past Surgical History Past Surgical History: Reports: Herniorrhaphy Social History Information Source: Patient Lives with: Family Smoking Status: Never Smoker Electronic Cigarette use?: No Frequency of Alcohol Use: None Hx Recreational Drug Use: No Drugs: None Hx Prescription Drug Abuse: No Family History Family History: Reviewed & Not Pertinent Parental Family History Reviewed: Yes Children Family History Reviewed: Yes Sibling(s) Family History Reviewed.: Yes Medication/Allergy Home Medications: Ascorbic Acid [Vitamin C 500 mg Tablet] 500 mg PO DAILY 12/05/19 Clonazepam 2 mg PO DAILY 12/05/19 Multivitamin [Tab-A-Makayla (Multiple Vitamin) Tablet] 1 tab PO DAILY 12/05/19 [place]-3/Dha/Epa/Fish Oil [Fish Oil 1,000 mg Softgel] 1,000 mg PO DAILY 12/05/19 Venlafaxine HCl ER [Effexor Xr 37.5 mg Cap.sr] 37.5 mg PO DAILY 12/05/19 Tamsulosin HCl [Flomax 0.4 mg Cap.sr] 0.4 mg PO QPM 12/06/19 Clonazepam [Klonopin 1 mg Tablet] 2 mg PO DAILY tablet 12/07/19 Clonazepam [Klonopin 1 mg Tablet] 2 mg PO QHS tablet 12/07/19 Tamsulosin HCl [Flomax 0.4 mg Cap.sr] 0.4 mg PO DAILY cap.sr.24h 12/07/19 Allergies/Adverse Reactions: No Known Allergies Allergy (Verified 12/04/19 20:46) Review of Systems All systems: reviewed and no additional remarkable complaints except as stated Gastrointestinal: PRESENT: abdominal pain, constipation Physical Exam Vital Signs: Temp Pulse Resp BP Pulse Ox 98.3 F 65 16 147/77 H 95 12/07/19 08:21 12/07/19 07:20 12/07/19 07:20 12/07/19 07:20 12/07/19 07:20 Intake & Output 12/06/19 12/07/19 12/08/19 06:59 06:59 06:59 Intake Total 5275 1070 Output Total 860 340 0 Balance 4415 730 0 Weight 83.1 kg 83.1 kg General appearance: PRESENT: no acute distress, cooperative, well-developed Head exam: PRESENT: atraumatic, normocephalic Eye exam: PRESENT: conjunctiva pink. ABSENT: scleral icterus Ear exam: PRESENT: normal external ear exam. ABSENT: bleeding, drainage Mouth exam: PRESENT: moist, tongue midline Neck exam: PRESENT: full ROM. ABSENT: carotid bruit, lymphadenopathy, thyromegaly, tracheostomy Respiratory exam: PRESENT: clear to auscultation lolita, prolonged expiratory phas, symmetrical, unlabored. ABSENT: rales, rhonchi, tachypnea, wheezes Cardiovascular exam: PRESENT: RRR, +S1, +S2, systolic murmur - Possible faint systolic murmur. ABSENT: bradycardia, diastolic murmur, irregular rhythm, tachycardia Pulses: PRESENT: normal radial pulses GI/Abdominal exam: PRESENT: normal bowel sounds, soft, tenderness - At incision sites. ABSENT: distended Rectal exam: PRESENT: deferred Gentrourinary exam: ABSENT: indwelling catheter Extremities exam: ABSENT: pedal edema Musculoskeletal exam: PRESENT: ambulatory, normal inspection. ABSENT: deformity, dislocation Neurological exam: PRESENT: alert, awake, oriented to person, oriented to place, oriented to time, oriented to situation, CN II-XII grossly intact. ABSENT: altered Psychiatric exam: PRESENT: appropriate affect. ABSENT: agitated, anxious Focused psych exam: ABSENT: delusional, paranoid, restlessness Skin exam: PRESENT: dry, normal color, warm, other - Well-healing incisions from laparoscopic cholecystectomy. ABSENT: erythema, rash Results Laboratory Results: 12/07/19 09:48 12/07/19 09:48 12/07/19 12/07/19 09:48 09:48 WBC 7.6 RBC 4.11 L Hgb 12.8 L D Hct 37.6 L MCV 92 MCH 31.1 MCHC 33.9 RDW 13.5 Plt Count 163 Seg Neutrophils % 65.4 Sodium 138.6 Potassium 4.0 Chloride 107 Carbon Dioxide 21 L Anion Gap 11 BUN 20 Creatinine 1.01 Est GFR ( Amer) > 60 Glucose 159 H Calcium 8.7 12/04/19 13:51 Troponin I 0.013 Impressions: Abdomen Ultrasound 12/04/19 13:34 IMPRESSION: 1. Cholelithiasis and sludge with gallbladder wall thickening and mildly distended gallbladder. Reported negative sonographic Leach's sign. Findings suggestive of but nondiagnostic for acute cholecystitis. Recommend correlation with patient symptoms and white count. 2. Complex cystic lesion within the right kidney measuring up to 4.0 cm. Dedicated renal protocol CT or MRI should be considered for more definitive annel racterization. 3. Questionable right adrenal mass measuring 4.0 x 2.6 x 5.6 cm. Again dedicated abdominal CT or MR should be considered for more definitive characterization. Chest X-Ray 12/04/19 20:22 IMPRESSION: No evidence of active intrathoracic disease. Mild chronic change Abdomen/Pelvis CT 12/05/19 08:00 IMPRESSION: 1. 3.7 CM CORTICAL CYST IN THE RIGHT KIDNEY. HOUNSFIELD UNITS CONSISTENT WITH SIMPLE FLUID. 2. DISTENDED GALLBLADDER WITH INFLAMMATORY CHANGES IN THE PERICHOLECYSTIC TISSUES. CONSIDER CHOLECYSTITIS. 3. AIRSPACE DISEASE WITH AIR BRONCHOGRAMS IN THE RIGHT LOWER LOBE CONCERNING FOR PNEUMONIA. 4. LEFT INGUINAL HERNIA CONTAINING FAT. SMALL UMBILICAL HERNIA CONTAINING FAT. 5. NO OTHER SIGNIFICANT OR ACUTE FINDINGS IN THE ABDOMEN OR PELVIS. NO ADRENAL MASS. THE ECHOGENIC AREA ON PREVIOUS ULTRASOUND IS PROBABLY RELATED TO PERINEPHRIC FAT. Assessment and Plan - Diagnosis (1) Abnormal CT scan of lung Is this a current diagnosis for this admission?: Yes Plan: The patient does have an abnormality on CT scan in the lungs (as well as kidneys). Chest x-ray was not convincing for focal infiltrate. The patient does not have an elevated white blood cell count. He has been afebrile. Pulse oximetry on room air is 95%. Respiratory rate is normal. He exhibits no increased work of breathing. He denies cough, productive or otherwise. His lungs are clear on exam. I do not believe there are any clinical findings to support the diagnosis of pneumonia. I believe the patient is safe to go home. There were other abnormalities noted on the CT scan of the abdomen. He should pursue these as an outpatient with his primary care provider with appropriate referrals. (2) Hypertension Qualifiers: Hypertension type: essential hypertension Qualified Code(s): I10 - Essential (primary) hypertension Is this a current diagnosis for this admission?: Yes Plan: There is no report of hypertension in the past medical history. His blood pressures have been slightly elevated. It could be related to the discomfort and physiologic stress of surgery. He should follow-up with his primary care provider to further evaluate and possibly initiate treatment. This is not a contraindication to discharge. (3) Cholecystitis, acute with cholelithiasis Qualifiers: Biliary obstruction: without biliary obstruction Qualified Code(s): K80.00 - Calculus of gallbladder with acute cholecystitis without obstruction Is this a current diagnosis for this admission?: Yes Plan: The patient underwent cholecystectomy. Follow-up with surgery. - Plan Summary Summary: The patient is a healthy 84-year-old male admitted December 03 for abdominal pain nausea found to have acute cholecystitis and cholelithiasis on CAT scan of the abdomen. His blood work within normal limits, his liver profile was normal, the patient underwent an uneventful laparoscopic cystectomy on December 04 with drain placement. Postop course was unremarkable, the patient was able to tolerate p.o. well, pain was minimal, on the day of discharge discharge the patient was afebrile, vital signs are stable, abdomen soft, Yohan drain output about 10 mL made of sanguinous fluid. Due to the identification of right lower lobe infiltrate on CAT scan, hospital consultation was obtained 12/07/2019-thank you for allowing me to participate in the care of this very pleasant gentleman. No evidence of pathology that would warrant keeping the patient in the hospital. I believe it is safe to discharge to home with follow- up with his primary care provider to address other abnormalities found on the CT scan of the abdomen portion as well as follow-up for his blood pressure. I do not believe it is appropriate to start any medication at this time but rather evaluate and treat as an outpatient. - Time Time Spent with patient: 35 or more minutes Medications reviewed and adjusted accordingly: Yes Anticipated Discharge Disposition: Home, Self Care - As determined by surgery Anticipated Discharge Timeframe: within 24 hours
--- NOTE | 2019-12-07 10:53 | PDOC DISCHARGE SUMMARY ---
General - Admit/Disc Date/PCP Admission Date/Primary Care Provider: 12/06/19 13:39 CAROL STARKS MD Discharge Date: 12/07/19 - Discharge Diagnosis Final Diagnosis: Acute cholecystitis with cholelithiasis Right simple kidney cyst Right inguinal hernia filled with fat Right lung lower lobe infiltrate on CAT scan - Assessment Summary: The patient is a healthy 84-year-old male admitted December 03 for abdominal pain nausea found to have acute cholecystitis and cholelithiasis on CAT scan of the abdomen. His blood work within normal limits, his liver profile was normal, the patient underwent an uneventful laparoscopic cystectomy on December 04 with drain placement. Postop course was unremarkable, the patient was able to tolerate p.o. well, pain was minimal, on the day of discharge discharge the patient was afebrile, vital signs are stable, abdomen soft, Yohan drain output about 10 mL made of sanguinous fluid. Due to the identification of right lower lobe infiltrate on CAT scan, hospital consultation was obtained and patient was found to be free from pneumonia. Patient was discharged home on December 07, 2019. Patient was given a follow-up appointment in 1 week, empty bulb drain daily, record output, bring record to clinic; sponge bath only until drain is in place then patient may shower; Tylenol only for pain; follow-up with personal patient in 1 to 2 weeks; activity as tolerated; resume home medications; no wound care needed except for drain care; regular diet. 12/07/2019-thank you for allowing me to participate in the care of this very pleasant gentleman. No evidence of pathology that would warrant keeping the patient in the hospital. I believe it is safe to discharge to home with follow- up with his primary care provider to address other abnormalities found on the CT scan of the abdomen portion as well as follow-up for his blood pressure. I do not believe it is appropriate to start any medication at this time but rather evaluate and treat as an outpatient. - Additional Information Resuscitation Status: Full Code Discharge Diet: Regular Discharge Activity: Activity As Tolerated, No tub bath - Sponge bath only until the drain is in place, afterward, the patient can shower or tub base, Walk Frequently Referrals: [facility] [Provider Group] - 12/20/19 9:00 am Home Medications: Ascorbic Acid [Vitamin C 500 mg Tablet] 500 mg PO DAILY 12/05/19 Clonazepam 2 mg PO DAILY 12/05/19 Multivitamin [Tab-A-Makayla (Multiple Vitamin) Tablet] 1 tab PO DAILY 12/05/19 [place]-3/Dha/Epa/Fish Oil [Fish Oil 1,000 mg Softgel] 1,000 mg PO DAILY 12/05/19 Venlafaxine HCl ER [Effexor Xr 37.5 mg Cap.sr] 37.5 mg PO DAILY 12/05/19 Tamsulosin HCl [Flomax 0.4 mg Cap.sr] 0.4 mg PO QPM 12/06/19 Clonazepam [Klonopin 1 mg Tablet] 2 mg PO DAILY tablet 12/07/19 Clonazepam [Klonopin 1 mg Tablet] 2 mg PO QHS tablet 12/07/19 Tamsulosin HCl [Flomax 0.4 mg Cap.sr] 0.4 mg PO DAILY cap.sr.24h 12/07/19 Additional Information: Follow-up in the office ([facility]) in 1 week for drain removal Routine abdominal drain care Empty drain bulb once a day, record amount, bring record of output to the office Sponge bath only anterior drain is in place Regular diet Resume home medications Follow-up with your primary care physician in 1 week to 2 weeks Tylenol only for pain No need of wound care Remain active All activities as tolerated including lifting, up and down the stairs, driving History of Present Illiness History of Present Illness: IRVIN LEE is a 84 year old male Physical Exam Vital Signs: Temp Pulse Resp BP Pulse Ox 98.3 F 65 16 147/77 H 95 12/07/19 08:21 12/07/19 07:20 12/07/19 07:20 12/07/19 07:20 12/07/19 07:20 Intake & Output 12/06/19 12/07/19 12/08/19 06:59 06:59 06:59 Intake Total 5275 1070 Output Total 860 340 Balance 4415 730 Weight 83.1 kg 83.1 kg Results Laboratory Results: WBC 11.4 10^3/uL (4.0-10.5) H 12/04/19 13:51 RBC 4.90 10^6/uL (4.35-5.55) 12/04/19 13:51 Hgb 15.0 g/dL (13.5-17.0) 12/04/19 13:51 Hct 44.8 % (37.9-51.0) 12/04/19 13:51 MCV 91 fl (80-97) 12/04/19 13:51 MCH 30.7 pg (27.0-33.4) 12/04/19 13:51 MCHC 33.6 g/dL (32.0-36.0) 12/04/19 13:51 RDW 13.6 % (11.5-14.0) 12/04/19 13:51 Plt Count 173 10^3/uL (150-450) 12/04/19 13:51 Lymph % (Auto) 5.4 % (13-45) L 12/04/19 13:51 [place] % (Auto) 9.8 % (3-13) 12/04/19 13:51 Eos % (Auto) 0.0 % (0-6) 12/04/19 13:51 Baso % (Auto) 0.2 % (0-2) 12/04/19 13:51 Absolute Neuts (auto) 9.6 10^3/uL (1.7-8.2) H 12/04/19 13:51 Absolute Lymphs (auto) 0.6 10^3/uL (0.5-4.7) 12/04/19 13:51 Absolute Monos (auto) 1.1 10^3/uL (0.1-1.4) 12/04/19 13:51 Absolute Eos (auto) 0.0 10^3/uL (0.0-0.6) 12/04/19 13:51 Absolute Basos (auto) 0.0 10^3/uL (0.0-0.2) 12/04/19 13:51 Seg Neutrophils % 84.6 % (42-78) H 12/04/19 13:51 Sodium 136.2 mmol/L (137-145) L 12/04/19 13:51 Potassium 4.4 mmol/L (3.6-5.0) 12/04/19 13:51 Chloride 101 mmol/L (98-107) 12/04/19 13:51 Carbon Dioxide 22 mmol/L (22-30) 12/04/19 13:51 Anion Gap 13 (5-19) 12/04/19 13:51 BUN 14 mg/dL (7-20) 12/04/19 13:51 Creatinine 0.85 mg/dL (0.52-1.25) 12/04/19 13:51 Est GFR ( Amer) > 60 (>60) 12/04/19 13:51 Est GFR (MDRD) Non-Af > 60 (>60) 12/04/19 13:51 Glucose 128 mg/dL (75-110) H 12/04/19 13:51 Calcium 9.4 mg/dL (8.4-10.2) 12/04/19 13:51 Total Bilirubin 1.0 mg/dL (0.2-1.3) 12/04/19 13:51 Direct Bilirubin 0.3 mg/dL (0.0-0.4) 12/04/19 13:51 Neonat Total Bilirubin Not Reportable 12/04/19 13:51 Neonat Direct Bilirubin Not Reportable 12/04/19 13:51 Neonat Indirect Bili Not Reportable 12/04/19 13:51 AST 30 U/L (17-59) 12/04/19 13:51 ALT 22 U/L (<50) 12/04/19 13:51 Alkaline Phosphatase 98 U/L (38-126) 12/04/19 13:51 Troponin I 0.013 ng/mL 12/04/19 13:51 Total Protein 7.3 g/dL (6.3-8.2) 12/04/19 13:51 Albumin 4.7 g/dL (3.5-5.0) 12/04/19 13:51 Lipase 59.2 U/L (23-300) 12/04/19 13:51 Urine Color YELLOW 12/04/19 20:00 Urine Appearance CLEAR 12/04/19 20:00 Urine pH 7.0 (5.0-9.0) 12/04/19 20:00 Ur Specific [place] 1.018 12/04/19 20:00 Urine Protein 100 mg/dL (NEGATIVE) H 12/04/19 20:00 Urine Glucose (UA) NEGATIVE mg/dL (NEGATIVE) 12/04/19 20:00 Urine Ketones NEGATIVE mg/dL (NEGATIVE) 12/04/19 20:00 Urine Blood NEGATIVE (NEGATIVE) 12/04/19 20:00 Urine Nitrite NEGATIVE (NEGATIVE) 12/04/19 20:00 Urine Bilirubin NEGATIVE (NEGATIVE) 12/04/19 20:00 Urine Urobilinogen 2.0 mg/dL (<2.0) H 12/04/19 20:00 Ur Leukocyte Esterase NEGATIVE (NEGATIVE) 12/04/19 20:00 Urine WBC (Auto) 4 /HPF 12/04/19 20:00 Urine RBC (Auto) 4 /HPF 12/04/19 20:00 Urine Mucus (Auto) OCC /LPF 12/04/19 20:00 Urine Ascorbic Acid NEGATIVE (NEGATIVE) 12/04/19 20:00 SARS-CoV-2 (PCR) NEGATIVE (NEGATIVE) 12/04/19 22:44 12/04/19 13:51 Troponin I 0.013 Impressions: Abdomen Ultrasound 12/04/19 13:34 IMPRESSION: 1. Cholelithiasis and sludge with gallbladder wall thickening and mildly distended gallbladder. Reported negative sonographic Leach's sign. Findings suggestive of but nondiagnostic for acute cholecystitis. Recommend correlation with patient symptoms and white count. 2. Complex cystic lesion within the right kidney measuring up to 4.0 cm. Dedicated renal protocol CT or MRI should be considered for more definitive characterization. 3. Questionable right adrenal mass measuring 4.0 x 2.6 x 5.6 cm. Again dedicated abdominal CT or MR should be considered for more definitive characterization. Chest X-Ray 12/04/19 20:22 IMPRESSION: No evidence of active intrathoracic disease. Mild chronic change Abdomen/Pelvis CT 12/05/19 08:00 IMPRESSION: 1. 3.7 CM CORTICAL CYST IN THE RIGHT KIDNEY. [place] UNITS CONSISTENT WITH SIMPLE FLUID. 2. DISTENDED GALLBLADDER WITH INFLAMMATORY CHANGES IN THE PERICHOLECYSTIC TISSUES. CONSIDER CHOLECYSTITIS. 3. AIRSPACE DISEASE WITH AIR BRONCHOGRAMS IN THE RIGHT LOWER LOBE CONCERNING FOR PNEUMONIA. 4. LEFT INGUINAL HERNIA CONTAINING FAT. SMALL UMBILICAL HERNIA CONTAINING FAT. 5. NO OTHER SIGNIFICANT OR ACUTE FINDINGS IN THE ABDOMEN OR PELVIS. NO ADRENAL MASS. THE ECHOGENIC AREA ON PREVIOUS ULTRASOUND IS PROBABLY RELATED TO PERINEPHRIC FAT.
== END 2019-12-07 11:54 | disposition home or self-care (01) | DRG 419 ==
LOC: ER 12:19 → INTOOBSV 21:50 → EH 21:50 → 4S 12-05 01:00 → OBSVTOIN 12-06 13:39
PROVIDERS: ADMIT Surgery; ATTEND Surgery
PROC: 0FT44ZZ Resection of Gallbladder, Percutaneous Endoscopic Approach (ICD-10-PCS; principal; 2019-12-07)
DX: K80.00 Calculus of gallbladder with acute cholecystitis without obstruction (principal); N28.1 Cyst of kidney, acquired; K40.90 Unilateral inguinal hernia, without obstruction or gangrene, not specified as recurrent; H91.90 Unspecified hearing loss, unspecified ear; E27.9 Disorder of adrenal gland, unspecified; F41.9 Anxiety disorder, unspecified; Z85.828 Personal history of other malignant neoplasm of skin; Z79.899 Other long term (current) drug therapy; Z85.46 Personal history of malignant neoplasm of prostate; Z92.3 Personal history of irradiation
CPT/HCPCS: 00790; 36415; 71045; 74177; 76705; 80048; 80053; 81001; 83690; 84484; 85025; 87635; 88304; 93005; 93010; 94799; 96372; 96374; 96375; 99140; 99285; C9803; G0378; J0330; J0690; J0696; J1100; J1650; J2270; J2405; J2543; J2704; J2710; J2765; J3010; J3490; J7030; S0119